=== PATIENT | female | born 1990 | race Caucasian/White ===

== ENCOUNTER → 2017-09-22 20:05 | Observation (INO) ==
--- NOTE | 2017-09-22 19:52 | OB/GYN Progress Note ---
Date of Encounter: 09/22/17 Time of Encounter: 19:47 - Assessment and Plan (1) 32 weeks gestation of Current Visit: Yes Status: Acute NST reactive (2) Fall on stairs Current Visit: Yes Status: Acute Fall down from 5th step to landing at bottom. Point of impact back/side. Good FM. No leaking or bleeding. Abdomen soft. Pt requesting discharge as soon as possbile. I expressed my concern due to pt's pain and contractions on toco. Pt continuing to request discharge home. She is agreeable to labs prior to discharge. Will collect fibrinogen, CBC and KB and call pt with results. FFN collected as well. Pt given strict return precautions. Will rx a few flexeril for pt's back pain. Pt instructed to return to ER if back pain persists or worsens. Qualifiers: Encounter type: initial encounter Qualified Code(s): W10.9XXA - Fall (on) ( from) unspecified stairs and steps, initial encounter Subjective - Subjective Interval history: 27 year-old presenting at 32 weeks s/p fall this afternoon around 2pm. She reports she was on the 5th step from the bottom when her child behind her fell and bumped her causing her to fall forward. She landed on the platform at the bottom of the stairs on her back and side. She reports some pain across her lower back that is constant but worsens with some positions. SHe also reports some "uterine irritability". She denies any leaking, bleeding, strong contractions. Good FM. SHe is requesting to go home as soon as possible. Antepartum ROS: movement normal, contractions, no loss of fluid, no vaginal bleeding Objective - Exam FHR: category 1 FHR comments: Reactive NST Auscultation: bilateral: normal Abdomen: Present: soft, gravid. Absent: tenderness Uterus: Absent: tenderness Cervical dilation: closed/thick/high Comments: TTP across lower back
[2017-09-22 20:06] LABS: Basophils # 0.1 K/mcL (0.0-0.2); Basophils % 0.7 %; Eosinophils # 0.2 K/mcL (0.0-0.6); Eosinophils % 1.3 %; Hematocrit 34.3 % (35.3-44.9); Hemoglobin 12.1 g/dL (11.5-15.4); Immature Granulocytes % 3.6 % (0-4); Lymphocytes # 3.8 K/mcL (0.6-4.6); Lymphocytes % 20.9 %; Mean Corpuscular HGB Conc 35.3 g/dL (31.6-35.5); Mean Corpuscular Hemoglobin 31.3 pg (28.0-33.3); Mean Corpuscular Volume 88.9 fL (83.0-100.0); Mean Platelet Volume 10.4 fL (9.4-12.4); Monocytes # 1.8 K/mcL (0.0-1.3); Monocytes % 9.9 %; Neutrophils # 11.4 K/mcL (1.6-8.9); Platelet Count 284 K/mcL (140-400); Red Blood Count 3.86 M/mcL (3.82-4.97); Red Cell Distribution Width 13.3 % (11.5-14.5); Segmented Neutrophils % 63.6 %
[2017-09-22 20:42] LABS: Amphetamine Screen,Urine Negative ng/mL (Cutoff=1000); Barbiturate Screen,Urine Negative ng/mL (Cutoff=200); Benzodiazepines Screen,Urine Negative ng/mL (Cutoff=200); Cannabinoid Screen,Urine Positive ng/mL (Cutoff = 50); Cocaine Screen,Urine Negative ng/mL (Cutoff= 300); Opiate Screen,Urine Negative ng/mL (Cutoff=300); Phencyclidine Screen,Urine Negative ng/mL (Cutoff=25)
== END | disposition home or self-care (01) ==
LOC: 1NENULAB
PROVIDERS: ADMIT Registered Nurse; ATTEND Registered Nurse

== ENCOUNTER → 2017-11-09 00:30 | Observation (INO) ==
[2017-11-08 23:58] LABS: Amphetamine Screen,Urine Negative ng/mL (Cutoff=1000); Barbiturate Screen,Urine Negative ng/mL (Cutoff=200); Benzodiazepines Screen,Urine Negative ng/mL (Cutoff=200); Cannabinoid Screen,Urine Negative ng/mL (Cutoff = 50); Cocaine Screen,Urine Negative ng/mL (Cutoff= 300); Opiate Screen,Urine Negative ng/mL (Cutoff=300); Phencyclidine Screen,Urine Negative ng/mL (Cutoff=25)
--- NOTE | 2017-11-09 00:18 | OB/GYN Progress Note ---
Date of Encounter: 11/09/17 Time of Encounter: 00:16 - Assessment and Plan (1) 38 weeks gestation of Current Visit: Yes Status: Acute (2) Decreased movement Current Visit: Yes Status: Acute Pt reports good FM once in triage. NST reactive. Pt has appt with her OB in the morning. Discharge home with precautions. Qualifiers: Fetus number: single or unspecified fetus Trimester: third trimester Qualified Code(s): O36.8130 - Decreased movements, third trimester, not applicable or unspecified Subjective - Subjective Interval history: 27 year-old presenting at 38 weeks gestation with c/o decreased movement today. She denies any leaking, bleeding, strong contractions. Good FM following arrival to triage. She is requesting to go home as soon as possible. Antepartum ROS: contractions (few, mild), no loss of fluid, no vaginal bleeding , no movement normal (decreased today, normal now) Objective - Vital Signs Vital Signs: Intake and Output 11/08/17 11/08/17 11/09/17 15:59 23:59 07:59 Other: Weight 85.5 kg - Exam FHR: category 1 FHR comments: FHT 115BPM baseline, reactive NST Abdomen: Present: soft, gravid. Absent: tenderness Uterus: Absent: tenderness Comments: irregular contractions on toco
== END | disposition home or self-care (01) ==
LOC: 1NENULAB
PROVIDERS: ADMIT Registered Nurse; ATTEND Registered Nurse